=== PATIENT | female | born 1945 | race Caucasian/White ===

== ENCOUNTER 2017-03-25 08:36 | Emergency (ER) | payer OTHER ==
[~2017-03-25] VITALS: Ht 157.5 cm; Wt 109.0 kg
[~2017-03-25 08:36] MED LIST: AMLO5TAB66 PO; ASPI-556 PO; ATOR40TA71 PO; BUPR150T8 PO; CARV12 PO; CEPH500 PO; FAMO40TA7 PO; FURO20TA4 PO; GABA-531 PO; GLIP10 PO; HCTZ; LOSA50TA37 PO; METF1000 PO; OMEP20 PO; PRAV40 PO; SIMV40TA5; TRAM50TA4 PO; [UNRECOGNIZED DRUG - OTHER]
[2017-03-25 08:47] LABS: GLUCOSE,POINT OF CARE 148 MG/DL (70-110)
[2017-03-25] MEDS ORDERED: GABA600T PO (08:49)
[2017-03-25] MEDS ORDERED: METF850T2 PO (08:49)
[2017-03-25 09:57] VITALS: BP 141/82
== END 2017-03-25 10:05 | disposition home or self-care (01) ==
LOC: EMS 08:37
DX: J40 Bronchitis, not specified as acute or chronic (principal); I11.9 Hypertensive heart disease without heart failure; E78.00 Pure hypercholesterolemia, unspecified; E11.9 Type 2 diabetes mellitus without complications; Z79.82 Long term (current) use of aspirin
CPT/HCPCS: 82962; 99283

== ENCOUNTER 2017-08-04 09:15 | Emergency (ER) | payer OTHER ==
[~2017-08-04] VITALS: Ht 154.9 cm; Wt 116.0 kg
[~2017-08-04 09:15] MED LIST changes: -CEPH500 PO; -FAMO40TA7 PO; -GABA-531 PO; +GABA600T PO; -GLIP10 PO; -HCTZ; -LOSA50TA37 PO; -METF1000 PO; +METF850T2 PO; -PRAV40 PO; -SIMV40TA5; -TRAM50TA4 PO; -[UNRECOGNIZED DRUG - OTHER]
[2017-08-04 09:33] LABS: GLUCOSE,POINT OF CARE 245 MG/DL (70-110)
[2017-08-04] MEDS ORDERED: PredniSONE 20 MG TABLET PO ONE (09:45)
[2017-08-04] MEDS ORDERED: CEPHALEXIN MONOHYDRATE 500 MG CAPSULE PO ONE (09:45)
[2017-08-04] MEDS ORDERED: TERBINAFINE HCL 1% 30 GM CREAM TP ONE (09:45)
[2017-08-04 09:54] VITALS: BP 127/94
[2017-08-04] MEDS ORDERED: FLUCONAZOLE 150 MG TABLET PO ONE (10:00)
== END 2017-08-04 10:13 | disposition home or self-care (01) ==
LOC: EMS 09:18
DX: L03.311 Cellulitis of abdominal wall (principal); B37.89 Other sites of candidiasis; I88.8 Other nonspecific lymphadenitis; E11.9 Type 2 diabetes mellitus without complications; I11.9 Hypertensive heart disease without heart failure; E78.00 Pure hypercholesterolemia, unspecified
CPT/HCPCS: 82962; 99284; J7512